=== PATIENT | male | born 1970 | race Caucasian/White ===

== ENCOUNTER 2019-07-21 15:35 | Emergency (ER) | payer OTHER ==
[~2019-07-21] VITALS: Ht 167.6 cm; Wt 86.2 kg
[2019-07-21 15:58] VITALS: BP 134/90
--- NOTE | 2019-07-21 16:08 | NUR ---
FELL FROM A FLATBED TRUCK DURING WORK TODAY---PT WAS FACING AWAY FROM THE OPEN END WHEN FELL ONTO BACK---DENIES HEAD INJURY LOWER BACK PAIN UNABLE TO AMBULATE WITHOUT PAIN---ABRASIONS TO FOREARMS
--- NOTE | 2019-07-21 17:08 | NUR ---
PATIENT WHEELCHAIR ASSISTED TO BED 7.
[2019-07-21] MEDS ORDERED: KETOROLAC 60 MG/2 ML VIAL IM ONE (17:50)
[2019-07-21] MEDS ORDERED: ONDANSETRON 4 MG ODT PO ONE (17:50)
[2019-07-21] MEDS ORDERED: HYDROcodone/APAP 7.5/325 MG 1 TAB PO ONE (17:50)
--- NOTE | 2019-07-21 18:45 | NUR ---
APPLIED KELLY WRAP TO LEFT WRIST WITHOUT ANY ISSUES
--- NOTE | 2019-07-21 19:20 | NUR ---
REPORT RECEIVED FROM NADEEM HAMMER
[2019-07-21 19:40] VITALS: BP 143/88
--- NOTE | 2019-07-21 19:40 | NUR ---
Patient discharged with v/s stable. Written and verbal after care instructions about back pain, vertebral fracture, and wrist pain given and explained. Patient alert, oriented and verbalized understanding of instructions. Ambulatory with steady gait. All questions addressed prior to discharge. ID band removed. Patient advised to follow up with PMD. Rx of medrol and ibuprofen given. Patient educated on indication of medication including possible reaction and side effects. Opportunity to ask questions provided and answered. Discharge done in [place]. Patient understands they cannot drive, daughter states she will drive pt.
== END 2019-07-21 19:40 | disposition home or self-care (01) ==
LOC: MED 15:35
DX: S39.012A Strain of muscle, fascia and tendon of lower back, initial encounter (principal); S66.912A Strain of unspecified muscle, fascia and tendon at wrist and hand level, left hand, initial encounter; V89.9XXA Person injured in unspecified vehicle accident, initial encounter; Y93.89 Activity, other specified; Y92.89 Other specified places as the place of occurrence of the external cause; Y99.8 Other external cause status
CPT/HCPCS: 72110; 72220; 73110; 96372; 99284; J1885; Q0092; Q0162